=== PATIENT | male | born 1995 | race Caucasian/White ===

== ENCOUNTER 2021-06-12 18:19 | Emergency (ER) | payer OTHER, SELFPAY ==
[2021-06-12 18:23] VITALS: BP 130/70; PULSE 98; RESP 20; TEMP 37.1; O2SAT 98
--- NOTE | 2021-06-12 19:58 | ED_ITS ---
HPI - URI/Sore Throat <MI Lau - Last Filed: 06/12/21 20:05> General Chief Complaint: Upper Respiratory Symptoms Stated Complaint: Needs a Strep Test, Sore Throat,Kidney Pain,Fever Time Seen by Provider: 06/12/21 19:40 Source: patient Mode of arrival: Ambulatory History of Present Illness HPI Narrative: 26-year-old male presents to the emergency department with URI symptoms including sore throat, mild cough, congestion, and muscle aches. Patient is COVID vaccinated x2, reports taking a home COVID test this morning with negative results. Patient does have 3 close COVID exposures recently. He is on day 2 of his symptoms and came to emergency department with concerns for strep throat. Patient denies a history of strep, he does have his tonsils, he denies any fever, nausea, vomiting, diarrhea, loss of taste or smell, he denies any shortness of breath, wheezing, chest pain or difficulty breathing. Review of Systems <MI Lau - Last Filed: 06/12/21 20:05> Review of Systems Narrative: General: denies fever, chills Head/Neck: denies headache, neck pain Throat: Endorses having a sore throat Eyes: denies visual changes, eye pain Cardio: denies chest pain, palpitations Respiratory: denies shortness of breath, has a mild cough GI: denies abdominal pain, nausea, vomiting, or diarrhea : denies dysuria, hematuria MSK: denies joint pain, muscle weakness endorses low back pain on bilateral sides Skin: denies rash, itching Neuro: denies numbness, tingling Patient History <MI Lau - Last Filed: 06/12/21 20:05> Social History Smoking Status: Never smoker Smoking Status: Never smoker alcohol intake frequency: holidays/special occasions only Exam <MI Lau - Last Filed: 06/12/21 20:05> Narrative Exam Narrative: Independently reviewed vitals signs and nursing notes. General: Awake, alert, nontoxic, no cardiorespiratory distress Head/Neck: Atraumatic, neck full range of motion Eyes: EOMI, conjunctiva normal Nose: nares patent, no rhinorrhea Mouth/Throat: moist mucus membranes, posterior pharynx erythematous with 1 lesion, no exudate, mild tonsillar adenopathy, without oral lesions Cardio: Regular rate and rhythm, no peripheral edema Respiratory: respirations unlabored without wheezing, stridor, or rales. No retractions. GI: Abdomen soft, nontender MSK: Moves all extremities, neurovascularly intact, no point tenderness along thoracic lumbar spine, patient has bilateral muscle aches Skin: Normal capillary refill, no rash Neuro: Normal speech and cognition, normal gait Initial Vital Signs Initial Vital Signs: Vital Signs Temperature 98.8 F 06/12/21 18:23 Pulse Rate 98 H 06/12/21 18:23 Respiratory Rate 20 06/12/21 18:23 Blood Pressure 130/70 06/12/21 18:23 Pulse Oximetry 98 06/12/21 18:23 <Petty Coughlin DO - Last Filed: 06/15/21 13:24> Initial Vital Signs Initial Vital Signs: Vital Signs Temperature 98.8 F 06/12/21 18:23 Pulse Rate 98 H 06/12/21 18:23 Respiratory Rate 20 06/12/21 18:23 Blood Pressure 130/70 06/12/21 18:23 Pulse Oximetry 98 06/12/21 18:23 Course <MI Lau - Last Filed: 06/12/21 20:05> Vital Signs Vital signs: Vital Signs - 8 hr 06/12/21 18:23 Temperature 98.8 F Pulse Rate 98 H Respiratory Rate 20 Blood Pressure 130/70 Pulse Oximetry 98 <Petty Coughlin DO - Last Filed: 06/15/21 13:24> Vital Signs Vital signs: Vital Signs - 8 hr 06/12/21 18:23 Temperature 98.8 F Pulse Rate 98 H Respiratory Rate 20 Blood Pressure 130/70 Pulse Oximetry 98 MDM - URI/Sore Throat <MI Lau - Last Filed: 06/12/21 20:05> Lab Data Labs: Point of Care Testing Rapid Strep A Negative MDM Narrative Medical decision making narrative: 26-year-old male presents to the emergency department with 2 days of sore throat, congestion, muscle aches seeking a strep test. His rapid strep was negative for strep a, patient does not have any history of strep in the past. Patient is COVID vaccinated x2, reports close exposure over the last 2 weeks with 3 known positive COVID contacts, patient took a home test this morning which was negative. Discussed likelihood of his tests being a false-positive as it is early in his symptoms. I presume this is most likely a COVID infection that has not declared itself yet. For this reason I did not give patient any D ecadron for his pharyngitis, recommended [id number] decongestants, ibuprofen and Tylenol, antihistamines and p.o. hydration. Patient understands to quarantine for 5 days from the onset of symptoms, he declined having another test in the emergency department today as he did not think it would be different. Presentation suggestive of viral syndrome/URI without evidence of hypoxia, respiratory distress, dehydration, or focal exam to suggest secondary bacterial infection. Discussed supportive treatments: Tylenol/Motrin as needed for pain/fever. OTC decongestant medications and/or antihistamines for symptomatic relief. Maintain adequate fluid intake. Follow-up with PCP as directed. Return to clinic/ER instructions discussed for new, not improving, or worsening symptoms. All questions answered. <Petty Coughlin, DO - Last Filed: 06/15/21 13:24> Lab Data Labs: Point of Care Testing Rapid Strep A Negative Discharge Plan Departure Patient Disposition: Home Clinical Impression: Upper respiratory infection Qualifiers: URI type: unspecified viral URI Qualified Code(s): J06.9 - Acute upper respiratory infection, unspecified Pharyngitis Qualifiers: Pharyngitis/tonsillitis etiology: unspecified etiology Qualified Code(s): J02.9 - Acute pharyngitis, unspecified Instructions: Coronavirus Disease 2019 Activity Restrictions/Additional Instructions: Giancarlo, thank you for trusting us with your care. At this point since you had a negative COVID test earlier today your this is likely a viral illness until it declares itself. I think it is COVID however this could be the worst of your symptoms and you might get better as well. Thank you for being vaccinated, that will help your severity of symptoms. New CDC recommendations as of 05/29 are: - Stay home for 5 days. - If symptoms have resolved or asymptomatic, you can leave your house but need to wear a mask for 5 additional days. Stay home >5 days if fever has not yet resolved. - Follow employer/school recommendations for return policies. Stay well hydrated, take Motrin or Tylenol for fever/pain, and can take [id number] medications if needed for cold symptoms. If you begin to feel short of breath or develop chest pain, please seek medical evaluation. [id number] things that are helpful: Sudafed decongestant, Mucinex, ibuprofen, hydration, NyQuil I hope you feel better soon. <Petty Coughlin, DO - Last Filed: 06/15/21 13:24> Cosign ED Attending Cosignature Attestation: I was immediately available in the department for consultation. Documentation has been reviewed.
== END 2021-06-12 20:07 | disposition home or self-care (01) ==
PROVIDERS: Emergency Provider Nurse Practitioner Critical Care Medicine
DX: J06.9 Acute upper respiratory infection, unspecified (principal); J02.9 Acute pharyngitis, unspecified
CPT/HCPCS: 87880; 99281; 99282